=== PATIENT | female | born 1960 | race Caucasian/White ===

== ENCOUNTER 2017-06-03 17:49 | Emergency (ER) | payer MEDICAID, OTHER ==
[2017-06-03] MEDS ORDERED: Bupivacaine 0.5% 30 ML SDV INJECT ONE (17:50)
--- NOTE | 2017-06-03 18:21 | EDM.PDOC ---
ED HPI GENERAL MEDICAL PROBLEM - General Chief Complaint: Laceration Stated Complaint: LEFT THUMB Time Seen by Provider: 06/03/17 17:49 Source of Information: Reports: Patient History Limitations: Reports: No Limitations - History of Present Illness INITIAL COMMENTS - FREE TEXT/NARRATIVE: 56 y.o.w.f came to the ed after she injured her left thumb while preparing a meal. 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 Onset: Today Onset Date: 06/03/17 Onset Time: 17:20 Duration: Minutes:, Constant Location: Reports: Upper Extremity, Left (left thumb) Quality: Reports: Ache, Burning Severity: Mild Improves with: Reports: Rest Worsens with: Reports: Movement Context: Reports: Trauma (cut in finger preparing a meal.) Associated Symptoms: Reports: No Other Symptoms left thumb Pain Score (Numeric/FACES): 3 - Related Data Allergies Allergy/AdvReac Type Severity Reaction Status Date / Time No Known Allergies Allergy Verified 06/03/17 18:09 Home Meds: Home Meds Amoxicillin/Potassium Clav [Augmentin 875-125 Tablet] 1 each PO BID #19 tablet 06/03/17 [Rx] Levothyroxine [Synthroid] 100 mcg PO DAILY 06/03/17 [History] Past Medical History Endocrine/Metabolic History: Reports: Hypothyroidism Oncologic (Cancer) History: Reports: Breast - Past Surgical History Female Surgical History: Reports: Hysterectomy, Oophorectomy Social & Family History - Tobacco Use Smoking Status *Q: Never Smoker - Caffeine Use Caffeine Use: Reports: None - Recreational Drug Use Recreational Drug Use: No ED ROS GENERAL - Review of Systems Review Of Systems: See Below Constitutional: Reports: No Symptoms HEENT: Reports: No Symptoms Respiratory: Reports: No Symptoms Cardiovascular: Reports: No Symptoms Endocrine: Reports: No Symptoms GI/Abdominal: Reports: No Symptoms : Reports: No Symptoms Musculoskeletal: Reports: No Symptoms Skin: Reports: Wound (wound left thumb) Neurological: Reports: No Symptoms Psychiatric: Reports: No Symptoms Hematologic/Lymphatic: Reports: No Symptoms Immunologic: Reports: No Symptoms ED EXAM, SKIN/RASH Exam: See Below Exam Limited By: No Limitations General Appearance: Alert, WD/WN, Mild Distress Eye Exam: Bilateral Eye: Normal Inspection Ears: Normal External Exam Nose: Normal Inspection Throat/Mouth: Normal Inspection Head: Atraumatic, Normocephalic Neck: Normal Inspection, Supple Respiratory/Chest: No Respiratory Distress Cardiovascular: Normal Peripheral Pulses, Regular Rate, Rhythm Peripheral Pulses: 1+: Radial (L), Radial (R) GI/Abdominal: Non-Tender (Female) Exam: Deferred Rectal (Female) Exam: Deferred Back Exam: Normal Inspection Extremities: Other (Lac left tip of thumb) Neurological: Alert, Oriented, CN II-XII Intact Psychiatric: Normal Affect, Normal Mood Skin: Other (LAC left distal phalanx of thumb) Lymphatic: No Adenopathy ED SKIN PROCEDURES - Laceration/Wound Repair Left Finger Lac/Wound length In cm: 1 (left thumb tip) Appearance: Superficial, Clean, Moderately Contaminated Distal NVT: Neuro & Vascular Intact, No Tendon Injury Local Anesthesia - Bupivicaine (Marcaine): 0.5% Plain Local Anesthetic Volume: 2cc Saline Irrigation (cc's): 5 Exploration/Debridement/Repair: Wound Explored, In a Bloodless Field, Explored to Base Suture Size: 4-0 # of Sutures: 2 Suture Type: Interrupted Tetanus Status Addressed: Yes Complications: No Course - Vital Signs Text/Narrative:: 56 y.o.w.f came to the ed after she injured her left thumb while preparing a meal. 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 PE: LAC left distal phalanx of thumb, no active bleed , 1 cm in length, no loss of function Impression: LAC left Thumb Procedure note: Please see note above Reexam: Improved, < 2 sec CAP refill Plan: D/C with instructions Last Recorded V/S: Last Vital Signs Temp 36.6 C 06/03/17 17:50 Pulse 64 06/03/17 17:50 Resp 14 06/03/17 17:50 BP 123/74 06/03/17 17:50 Pulse Ox 100 06/03/17 17:50 - Orders/Labs/Meds Meds: Medications Discontinued Medications Generic Name Dose Route Start Last Admin Trade Name Freq PRN Reason Stop Dose Admin Amoxicillin/Clavulanate Potassium 1 tab 06/03/17 18:25 06/03/17 18:34 Augmentin 875 Mg/125 Mg PO 06/03/17 18:26 1 tab ONETIME ONE Administration Bupivacaine HCl 2 ml 06/03/17 17:50 Marcaine 0.5% INJECT 06/03/17 17:51 .STK-MED ONE Departure - Departure Time of Disposition: 18:21 Disposition: Home, Self-Care 01 Condition: Good Clinical Impression: Laceration - Discharge Information Prescriptions: Amoxicillin/Potassium Clav [Augmentin 875-125 Tablet] 1 each PO BID #19 tablet Instructions: Laceration Care, Adult Referrals: Ella Bond, [employer] [Primary Care Provider] - Forms: ED Department Discharge Additional Instructions: Please apply neosporine to wound twice daily for 4 days, Augmentin as recommended, wound check in next 2-3 days, suture removal in 10 days, please come back if your symptoms get worse acutely.
[2017-06-03] MEDS ORDERED: Amoxicillin/Clavulanate K 875-125 MG Tab PO ONE (18:25)
== END 2017-06-03 18:39 | disposition home or self-care (01) ==
LOC: FB.ED 17:49
DX: S61.012A Laceration without foreign body of left thumb without damage to nail, initial encounter (principal); Z79.899 Other long term (current) drug therapy; W45.8XXA Other foreign body or object entering through skin, initial encounter
CPT/HCPCS: 12001; 99282; A4217; A9270

== ENCOUNTER 2021-02-14 07:03 | Day surgery (SDC) | payer OTHER ==
[~2021-02-14 07:03] MED LIST: Lactated Ringers 1,000 ML IV SCH; Sodium Chloride 0.9% 10 ML Syringe FLUSH PRN
[2021-02-14] MEDS ORDERED: Glycopyrrolate 0.2 MG/ML 5 ML MDV IV ONE (07:04)
[2021-02-14] MEDS ORDERED: Dexamethasone 4 MG/ML 5 ML MDV IVPUSH ONE (07:04)
[2021-02-14] MEDS ORDERED: Propofol 200 MG/20 ML SDV IV ONE (07:04)
[2021-02-14] MEDS ORDERED: Lidocaine 2% 5 ML SDV INJECT ONE (07:04)
--- NOTE | 2021-02-14 08:17 | PCM.HP.2 ---
H&P History of Present Illness - General Date of Service: 02/14/21 Admit Problem/Dx: Admission Diagnosis/Problem Admission Diagnosis/Problem Esophagogastroduodenoscopy Source of Information: Patient, Old Records History Limitations: Reports: No Limitations - History of Present Illness Initial Comments - Free Text/Narative: Here for EGD for evaluation of refulx symptoms including coughing and hoarse voice - Related Data Allergies/Adverse Reactions: Allergies Allergy/AdvReac Type Severity Reaction Status Date / Time adhesive tape Allergy Cannot Verified 02/14/21 07:40 Remember codeine Allergy Hives Verified 02/14/21 07:40 hydrocodone Allergy Hives Verified 02/14/21 07:40 latex Allergy Itching Verified 02/14/21 07:40 morphine Allergy Hives Verified 02/14/21 07:40 Home Medications: Home Meds Levothyroxine [Synthroid] 150 mcg PO MOFR 06/03/17 [History] Benzonatate [Tessalon Perle] 100 mg PO TID PRN 02/10/21 [History] Citalopram Hydrobromide [Celexa] 20 mg PO DAILY 02/10/21 [History] Levothyroxine [Synthroid] 100 mcg PO SUTUWETHSA 02/10/21 [History] Past Medical History HEENT History: Reports: None Cardiovascular History: Reports: None Respiratory History: Reports: None Gastrointestinal History: Reports: None Genitourinary History: Reports: None [employer] History: Reports: Musculoskeletal History: Reports: None Neurological History: Reports: None Psychiatric History: Reports: Depression Endocrine/Metabolic History: Reports: Hypothyroidism Hematologic History: Reports: None Immunologic History: Reports: None Oncologic (Cancer) History: Reports: Breast, Thyroid Dermatologic History: Reports: None - Past Surgical History Head Surgeries/Procedures: Reports: None HEENT Surgical History: Reports: LASIK, Tonsillectomy Cardiovascular Surgical History: Reports: None Respiratory Surgical History: Reports: Thoracotomy GI Surgical History: Reports: Cholecystectomy, Colonoscopy Female Surgical History: Reports: Breast Implant, Breast Reconstruction, Hysterectomy, Mastectomy, Oophorectomy Endocrine Surgical History: Reports: Thyroidectomy Neurological Surgical History: Reports: None Musculoskeletal Surgical History: Reports: None Oncologic Surgical History: Reports: None Dermatological Surgical History: Reports: None Social & Family History - Tobacco Use Tobacco Use Status *Q: Never Tobacco User - Caffeine Use Caffeine Use: Reports: Coffee, Tea - Recreational Drug Use Recreational Drug Use: No H&P Review of Systems - Review of Systems: Review Of Systems: Comprehensive ROS is negative, except as noted in HPI. Exam - Exam Exam: See Below - Vital Signs Vital Signs: Last Vital Signs Temp 98.2 F 02/14/21 07:27 Pulse 60 02/14/21 07:27 Resp 18 02/14/21 07:27 BP 128/69 02/14/21 07:27 Pulse Ox 98 02/14/21 07:27 Weight: 61 kg - Exam General: Alert, Oriented Lungs: Clear to Auscultation, Normal Respiratory Effort Cardiovascular: Regular Rate, Regular Rhythm Sepsis Event Note - Focused Exam Vital Signs: Vital Signs Temp Pulse Resp BP Pulse Ox 02/14/21 07:27 98.2 F 60 18 128/69 98 Problem List Initiated/Reviewed/Updated: Yes Orders Last 24hrs: Active Orders 24 hr Category Date Time Status Patient Status [ADT] Routine ADT 02/14/21 06:45 Active Nothing Per Oral Diet [DIET] Diet 02/14/21 Breakfast Ordered Medication Orders Lactated Ringer's (Ringers, Lactated) 1,000 mls @ 125 mls/hr IV ASDIRECTED FLORENTINO Last Admin: 02/14/21 07:41 Dose: 125 mls/hr Documented by: MYLES Sodium Chloride (Sodium Chloride 0.9% 10 Ml Syringe) 10 ml FLUSH ASDIRECTED PRN PRN Reason: Keep Vein Open Assessment/Plan Comment:: Reflux Symptoms Will proceed with EGD; consent obtained
--- NOTE | 2021-02-14 08:37 | PCM.OPNOTE ---
- General Post-Op/Procedure Note Date of Surgery/Procedure: 02/14/21 Operative Procedure(s): EGD with Bx Findings: Gastritis, Esophageal Erosion Pre Op Diagnosis: Reflux Post-Op Diagnosis: Same Anesthesia Technique: MAC Primary Surgeon: Ari Aleman Complications: None Condition: Good
--- NOTE | 2021-02-14 11:51 | OR ---
DATE OF OPERATION: 02/14/2021 SURGEON: Ari Aleman MD PREOPERATIVE DIAGNOSIS: Reflux symptoms. POSTOPERATIVE DIAGNOSES: 1. Esophageal erosion. 2. Chronic gastritis. PROCEDURE: Esophagogastroduodenoscopy with biopsy. ANESTHESIA: IV sedation. PROCEDURE: The patient was brought to the procedure room where she was placed on her left side and IV sedation administered. Oral bite block was placed and the upper endoscope advanced into the hypopharynx. 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 Scope was advanced to the third portion of the duodenum. Duodenum and pylorus were normal. Antrum appears normal. Body of the stomach has some evidence of chronic gastritis with some small old clot areas present without active bleeding. There was a fair amount of bile in her stomach that is likely contributing to her symptoms. Retroflexion reveals her lower esophageal sphincter to be weak, and I can visualize into the distal esophagus upon retroflexion. She does have at least 1 erosion and likely some other smaller ones in the folds of the distal esophagus. There was no stricture present. No hiatal hernias present. I took biopsies from the body of the stomach and also the mid and distal esophagus in addition to the antrum to check for Helicobacter pylori. Air was removed from the stomach and the scope withdrawn. The patient tolerated the procedure well. We will recommend that she begin omeprazole and follow up with Ella Bond next week for review of biopsies. /[id number] ROBERT/ANGEL
== END 2021-02-14 09:50 | disposition home or self-care (01) ==
LOC: FB.SDS 07:03
PROVIDERS: ATTEND Surgery
DX: K20.90 Esophagitis, unspecified without bleeding (principal); K29.50 Unspecified chronic gastritis without bleeding; E03.9 Hypothyroidism, unspecified; Z79.899 Other long term (current) drug therapy; Z79.890 Hormone replacement therapy; Z98.890 Other specified postprocedural states
CPT/HCPCS: 00731; 43239; 88305; 88342; J1100; J2704; J3490; J7120